=== PATIENT | male | born 1990 | race Caucasian/White ===

== ENCOUNTER 2020-10-11 18:03 | Emergency (ER) | payer OTHER ==
[2020-10-11] MEDS ORDERED: VIBRAMYCIN100 MG PO (20:03)
== END 2020-10-11 20:12 | disposition home or self-care (01) ==
LOC: FER 18:03
DX: L02.414 Cutaneous abscess of left upper limb (principal); F17.210 Nicotine dependence, cigarettes, uncomplicated